=== PATIENT | female | born 1950 | race Caucasian/White ===

== ENCOUNTER 2017-07-22 05:37 | Inpatient (IN) | payer MEDICARE, BC ==
[~2017-07-22] VITALS: Ht 160 cm; Wt 115.0 kg
[~2017-07-22 05:37] MED LIST: ATEN50TA41 PO; ATOR20TA PO; CALCIUM PO; CETI10TA24 PO; CLON0.1T PO; CYCL-259 PO; DOCU-131 PO; DULO20CA45 PO; FURO-93 PO; HYDR-3245 PO; HYDR-3307 PO; LANS30CA60 PO; LEVO75TA59 PO; METO25TA9 PO; MULT-658 PO; PREG50CA PO
[2017-07-22] MEDS ORDERED: LACTATED RINGERS 1,000 ML IV SCH (06:15)
[2017-07-22 06:30] VITALS: BP 163/92
[2017-07-22] MEDS ORDERED: EPINEPHRINE 1 MG/ML, 1ML ONE (06:46)
[2017-07-22] MEDS ORDERED: BUPIVACAINE/PF 0.5% ONE (06:46)
[2017-07-22] MEDS ORDERED: BACITRACIN OINT 500U/GM, 15 GM ONE (06:46)
[2017-07-22] MEDS ORDERED: FENTANYL PF 100 MCG/2ML ONE ×2 (07:13→09:00)
[2017-07-22] MEDS ORDERED: MIDAZOLAM 1 MG/ML, 2ML ONE (07:13)
[2017-07-22] MEDS ORDERED: CEFAZOLIN 1,000 MG ONE (07:37)
[2017-07-22] MEDS ORDERED: PROPOFOL 10 MG/ML, 20ML ONE (07:37)
[2017-07-22] MEDS ORDERED: SUCCINYLCHOLINE 20 MG/ML, 10ML ONE (07:37)
[2017-07-22] MEDS ORDERED: DEXAMETHASONE 4 MG/ML, 5ML ONE (07:37)
[2017-07-22] MEDS ORDERED: ONDANSETRON 2MG/ML, 2ML ONE (07:37)
[2017-07-22] MEDS ORDERED: ROCURONIUM 10 MG/ML ONE (07:37)
[2017-07-22] MEDS ORDERED: DOCUSATE 100 MG CAPSULE PO PRN (08:00)
[2017-07-22] MEDS ORDERED: PROMETHAZINE 25 MG/ML, 1ML IM PRN (08:00)
[2017-07-22] MEDS ORDERED: ONDANSETRON 2MG/ML, 2ML IVPush PRN ×2 (08:00→08:30)
[2017-07-22] MEDS ORDERED: OXYcodone/APAP 5/325MG TABLET PO PRN (08:00)
[2017-07-22] MEDS ORDERED: morphine SULFATE 10 MG/ML, 1ML IVPush PRN (08:00)
[2017-07-22] MEDS ORDERED: DIPHENHYDRAMINE 50 MG CAPSULE PO PRN (08:00)
[2017-07-22] MEDS ORDERED: LABETALOL 5MG/ML, 20ML IV PRN (08:30)
[2017-07-22] MEDS ORDERED: MEPERIDINE/PF 25MG/0.5ML IVPush PRN (08:30)
[2017-07-22] MEDS ORDERED: ACETAMINOPHEN 325 MG TABLET PO PRN (08:30)
[2017-07-22] MEDS ORDERED: PROMETHAZINE 25 MG/ML, 1ML IV PRN (08:30)
[2017-07-22] MEDS ORDERED: OXYcodone 5 MG/5 ML ORAL.SOL UDC PO PRN (08:30)
[2017-07-22] MEDS ORDERED: hydrALAzine 20 MG/ML, 1ML IV PRN (08:30)
[2017-07-22] MEDS: FUROSEMIDE 20 MG TABLET PO SCH (09:00)
[2017-07-22] MEDS: CETIRIZINE 10 MG TABLET PO SCH (09:00)
[2017-07-22] MEDS: METOPROLOL SUCCINATE 25 MG TAB.ER.24H PO SCH (09:00)
[2017-07-22] MEDS ORDERED: DULOXETINE 20 MG CAPSULE.DR PO SCH (09:00)
[2017-07-22] MEDS: LEVOTHYROXINE 75 MCG TABLET PO SCH (09:00)
[2017-07-22] MEDS: PREGABALIN 75 MG CAPSULE PO SCH ×2 (09:00→16:01)
[2017-07-22] MEDS ORDERED: HYDROmorphone 1 MG/ML, 1ML ONE (09:00)
[2017-07-22] MEDS ORDERED: hydrALAzine 20 MG/ML, 1ML ONE (09:01)
[2017-07-22] MEDS ORDERED: HYDROcodone/APAP 7.5-325MG/15ML UDC ONE (09:10)
[2017-07-22] MEDS: FENTANYL PF 100 MCG/2ML IV PRN ×2 (09:15→09:50)
[2017-07-22] MEDS ORDERED: HYDROcodone/APAP 7.5-325MG/15ML UDC PO PRN (09:30)
[2017-07-22] MEDS: HYDROmorphone 1 MG/ML, 1ML IV PRN ×3 (10:03→12:19)
[2017-07-22] MEDS: D5%-0.45% NACL 1,000 ML IV SCH ×2 (11:25→21:00)
[2017-07-22] MEDS ORDERED: [UNRECOGNIZED DRUG - REMARK] MC SCH (12:30)
[2017-07-22 14:07] VITALS: BP 116/68
[2017-07-22] MEDS: HYDROcodone/APAP 10/325 MG TABLET PO PRN ×2 (15:58→20:17)
[2017-07-22] MEDS: CEFAZOLIN PMX 1GM/50ML 50 ML IVPB SCH (15:58)
[2017-07-22] MEDS: PANTOPRAZOLE 20MG TABLET PO SCH (20:17)
[2017-07-22 21:10] VITALS: BP 153/70
[2017-07-23] MEDS: CEFAZOLIN PMX 1GM/50ML 50 ML IVPB SCH (00:21)
[2017-07-23] MEDS: HYDROcodone/APAP 10/325 MG TABLET PO PRN ×5 (00:23→20:18)
[2017-07-23 01:27] VITALS: BP 158/79
[2017-07-23] MEDS: PREGABALIN 75 MG CAPSULE PO SCH ×2 (05:28→17:02)
[2017-07-23] MEDS: LEVOTHYROXINE 75 MCG TABLET PO SCH (05:28)
[2017-07-23] MEDS: HYDROmorphone 1 MG/ML, 1ML IVPush PRN ×4 (06:13→23:42)
[2017-07-23 06:33] VITALS: BP 179/79
[2017-07-23] MEDS ORDERED: OMEPRAZOLE 20 MG CAPSULE.DR PO SCH (07:30)
[2017-07-23] MEDS: METOPROLOL SUCCINATE 25 MG TAB.ER.24H PO SCH (07:59)
[2017-07-23] MEDS: DULOXETINE 20 MG CAPSULE.DR PO SCH ×3 (07:59→20:18)
[2017-07-23] MEDS: FUROSEMIDE 20 MG TABLET PO SCH (07:59)
[2017-07-23] MEDS: PANTOPRAZOLE 20MG TABLET PO SCH ×2 (07:59→20:18)
[2017-07-23] MEDS: CETIRIZINE 10 MG TABLET PO SCH (08:00)
[2017-07-23] MEDS: D5%-0.45% NACL 1,000 ML IV SCH ×2 (08:05→17:00)
[2017-07-23] MEDS: CYCLOBENZAPRINE 10 MG TABLET PO PRN ×2 (10:00→18:30)
[2017-07-23 13:49] VITALS: BP 132/59
[2017-07-23 18:21] VITALS: BP 162/81
[2017-07-24] MEDS: HYDROcodone/APAP 10/325 MG TABLET PO PRN ×4 (00:18→12:57)
[2017-07-24 01:22] VITALS: BP 133/78
[2017-07-24] MEDS: D5%-0.45% NACL 1,000 ML IV SCH ×2 (03:00→11:48)
[2017-07-24] MEDS: HYDROmorphone 1 MG/ML, 1ML IVPush PRN (04:35)
[2017-07-24] MEDS: CYCLOBENZAPRINE 10 MG TABLET PO PRN ×2 (04:39→12:57)
[2017-07-24] MEDS: LEVOTHYROXINE 75 MCG TABLET PO SCH (06:14)
[2017-07-24] MEDS: PREGABALIN 75 MG CAPSULE PO SCH (06:14)
[2017-07-24 07:29] VITALS: BP 153/74
[2017-07-24] MEDS: FUROSEMIDE 20 MG TABLET PO SCH (08:39)
[2017-07-24] MEDS: DULOXETINE 20 MG CAPSULE.DR PO SCH (08:39)
[2017-07-24] MEDS: METOPROLOL SUCCINATE 25 MG TAB.ER.24H PO SCH (08:39)
[2017-07-24] MEDS: PANTOPRAZOLE 20MG TABLET PO SCH (08:39)
[2017-07-24] MEDS: CETIRIZINE 10 MG TABLET PO SCH (08:42)
[2017-07-24] MEDS ORDERED: HYDR-3307 PO (11:31)
== END 2017-07-24 13:39 | disposition home or self-care (01) | DRG 459 ==
LOC: ORIP 05:37 → 4NOR 11:55
PROVIDERS: ADMIT Orthopaedic Surgery Orthopaedic Surgery of the Spine; ATTEND Orthopaedic Surgery Orthopaedic Surgery of the Spine
PROC: 0SG70ZZ (ICD-10-PCS; principal; 2017-07-22 07:30)
DX: M46.1 Sacroiliitis, not elsewhere classified (principal); E43 Unspecified severe protein-calorie malnutrition; E66.01 Morbid (severe) obesity due to excess calories; I10 Essential (primary) hypertension; K21.9 Gastro-esophageal reflux disease without esophagitis; Z98.1 Arthrodesis status; Z68.36 Body mass index [BMI] 36.0-36.9, adult; Z88.8 Allergy status to other drugs, medicaments and biological substances; Z88.7 Allergy status to serum and vaccine; Z91.040 Latex allergy status; Z98.51 Tubal ligation status; Z87.891 Personal history of nicotine dependence
CPT/HCPCS: 36415; 72202; 76000; 85018; J0171; J0690; J1100; J1170; J2250; J2405; J2704; J3010; J3490; C1762; C1776; J0330; J0360; J7120